=== PATIENT | male | born 1960 | race Caucasian/White ===

== ENCOUNTER 2017-04-21 08:57 | Outpatient (CLI) | payer OTHER ==
[2017-04-21 09:55] LABS: eGFR (African) > 60; eGFR (Non-African) > 60
== END 2017-04-21 09:05 ==
LOC: LAB 08:57
PROVIDERS: ATTEND Physician Assistant
DX: E78.5 Hyperlipidemia, unspecified (principal); Z00.00 Encounter for general adult medical examination without abnormal findings
CPT/HCPCS: 36415; 80053; 80061

== ENCOUNTER → 2017-07-06 | Day surgery (SDC) | payer OTHER ==
[~2017-07-06] MED LIST: LACTATED RINGERS 1,000 ML IV.SOLN IV ONE; LIDOCAINE HCL/PF 2% 100 MG/5 ML VIAL IJ ONE; PROPOFOL 500 MG/50 ML VIAL IV ONE; SALINE FLUSH 10 ML DISP.SYRIN IVF ONE
--- NOTE | 2017-07-06 15:24 | GI Report ---
REFERRING PHYSICIAN: LUC Bear SOFTWARE DEVELOPER MANAGER: Moi Glasgow MD PROCEDURE MEDICATION: Propofol as per anesthesia. INDICATIONS: This is a 57-year-old man who had an adenomatous polyp in 2011. He is referred for a follow-up surveillance colonoscopy. He denies any change in bowel habits. He apparently has stopped cigarette smoking, though still chews tobacco. His weight is 111 kilograms and he carries that centrally. He is 5 feet 10 inches tall. PROCEDURE PERFORMED: Colonoscopy. PROCEDURE: An Olympus video colonoscope was advanced to the rectum. The prep was fair. He does have some small diverticula in the sigmoid and descending colon. A very atonic redundant colon. It took some maneuvering to finally reach the cecum. The appendiceal orifice and terminal ileum were normal. On slow withdrawal, the cecum, ascending colon, and transverse colon with no obvious intraluminal lesions noted. The descending colon and sigmoid colon with scattered small diverticula. No obvious intraluminal lesion noted. Retroflexion of the rectum was normal. Patient tolerated the procedure well. FINDINGS: 1. Mild diverticular disease of sigmoid colon. 2. An atonic redundant colon. RECOMMENDATIONS: 1. A high-fiber diet. 2. Since he is negative this time, consider re-looking at his colon in 7 to 10 years unless there is some interval change. cc: LUC Bear [facility]
== END ==
LOC: OPSURG 10:26
PROVIDERS: ATTEND Internal Medicine Gastroenterology
DX: Z86.010 Personal history of colon polyps (principal); K57.30 Diverticulosis of large intestine without perforation or abscess without bleeding; K59.8 Other specified functional intestinal disorders
CPT/HCPCS: 45378; J2001; J2704; J7120; S1016